=== PATIENT | female | born 1945 | race Two or more races ===

== ENCOUNTER 2024-01-10 18:59 | Emergency (ER) | payer SELFPAY ==
[~2024-01-10] VITALS: Ht 162.6 cm; Wt 91.0 kg
[2024-01-10 19:05] VITALS: BP 159/89; PULSE 87; RESP 18; TEMP 98.2
[2024-01-10] MEDS ORDERED: METO-325 PO (19:15)
== END 2024-01-11 00:04 | disposition left against medical advice (07) ==
LOC: EMS 18:59
DX: Z76.0 Encounter for issue of repeat prescription (principal); Z53.21 Procedure and treatment not carried out due to patient leaving prior to being seen by health care provider